=== PATIENT | female | born 1990 | race Hispanic/Latino ===

== ENCOUNTER 2017-05-12 08:56 | Emergency (ER) | payer SELFPAY ==
[2017-05-12 08:58] VITALS: BMI 30.7
[2017-05-12 09:00] VITALS: BP 136/79; PULSE 92; RESP 18; TEMP 97.1; O2SAT 97
--- NOTE | 2017-05-12 09:29 | ED PDOC ---
HPI: Abdomen Time Seen by Provider: 05/12/17 09:10 Chief Complaint (Nursing): Groin Pain Chief Complaint (Provider): Inguinal pain History Per: Patient History/Exam Limitations: no limitations Onset/Duration Of Symptoms: Days (x5) Current Symptoms Are (Timing): Still Present Additional Complaint(s): She Dangelo is a 27 year old female presenting to the ED for an evaluation of right inguinal pain occurring for 5 days prior to arrival, becoming progressively worse. The patient denies any nausea, vomiting, diarrhea, or any urinary symptoms. The patient does not recall any injury. PMD: MD Devendra Past Medical History Reviewed: Historical Data, Nursing Documentation, Vital Signs Vital Signs: Last Vital Signs Temp 97.1 F L 05/12/17 08:59 Pulse 92 H 05/12/17 08:59 Resp 18 05/12/17 08:59 BP 136/79 05/12/17 08:59 Pulse Ox 97 05/12/17 09:30 - Medical History PMH: No Chronic Diseases - Family History Family History: States: No Known Family Hx - Social History Current smoker - smoking cessation education provided: No Ex-Smoker (has not smoked in the last 12 months): No Alcohol: Social Drugs: Denies - Home Medications Home Medications: Ambulatory Orders Medication Instructions Recorded Naproxen [Naprosyn] 500 mg PO Q12H #20 tab 05/12/17 - Allergies Allergies/Adverse Reactions: Allergies Allergy/AdvReac Type Severity Reaction Status Date / Time No Known Allergies Allergy Verified 05/12/17 09:15 Review of Systems ROS Statement: Except As Marked, All Systems Reviewed And Found Negative Gastrointestinal: Negative for: Nausea, Vomiting, Diarrhea Genitourinary Female: Positive for: Pelvic Pain (right inguinal pain). Negative for: Dysuria, Frequency, Incontinence, Hematuria Physical Exam - Reviewed Nursing Documentation Reviewed: Yes Vital Signs Reviewed: Yes - Physical Exam Appears: Positive for: Non-toxic, No Acute Distress Head Exam: Positive for: ATRAUMATIC, NORMOCEPHALIC Skin: Positive for: Normal Color, Warm, Dry Eye Exam: Positive for: Normal appearance, EOMI ENT: Positive for: Normal ENT Inspection Neck: Positive for: Normal, Painless ROM Cardiovascular/Chest: Positive for: Regular Rate, Rhythm, Chest Non Tender Respiratory: Positive for: Normal Breath Sounds. Negative for: Respiratory Distress Gastrointestinal/Abdominal: Positive for: Bowel Sounds, Soft, Other (right inguinal tenderness). Negative for: Tenderness, Mass (no mass palpable), Hernia (no hernia palpable) Extremity: Positive for: Normal ROM. Negative for: Tenderness (no hip tenderness), Deformity Neurologic/Psych: Positive for: Alert, Oriented (x3). Negative for: Motor/ Sensory Deficits - ECG O2 Sat by Pulse Oximetry: 97 (RA) Pulse Ox Interpretation: Normal Medical Decision Making Medical Decision Making: Time: 09:10 Impression: Right inguinal pain Plan: * Toradol 30 mg IM * CT Abd & Pelvis W/O PO or IV Cont * Reevaluation Declines CT and meds will f/u outpt Scribe Attestation: Documented by Rozina Cohen, acting as a scribe for Ronald Blood MD. Provider Scribe Attestation: All medical record entries made by the Scribe were at my direction and personally dictated by me. I have reviewed the chart and agree that the record accurately reflects my personal performance of the history, physical exam, medical decision making, and the department course for this patient. I have also personally directed, reviewed, and agree with the discharge instructions and disposition. Disposition - Clinical Impression Clinical Impression: Inguinal strain - Patient ED Disposition Is Patient to be Admitted: No Counseled Patient/Family Regarding: Need For Followup, Rx Given - Disposition Referrals: Felicaino Gonzalez MD [Staff Provider] - Disposition: Routine/Home Disposition Time: 09:46 Condition: FAIR Prescriptions: Naproxen [Naprosyn] 500 mg PO Q12H #20 tab Instructions: Groin Pain (ED) Forms: Jimmy Fairly (K[place]akh)
== END 2017-05-12 09:57 | disposition home or self-care (01) ==
LOC: H.ER 08:56
DX: S39.011A Strain of muscle, fascia and tendon of abdomen, initial encounter (principal); Y92.89 Other specified places as the place of occurrence of the external cause